=== PATIENT | female | born 1960 | race Caucasian/White ===

== ENCOUNTER → 2016-07-27 | Outpatient (CLI) | payer BC ==
--- NOTE | 2016-07-28 11:34 | SLS ---
Brenna is 54 with severe obstructive sleep apnea with an AHI 128. She is coming in for a routine check. She is on a CPAP pressure at the pressure of 15 cm of water. I noticed patient's mother used to be my patient, Jasmine Sommers, and she passed from complications of viral encephalitis approximately 4 weeks ago. Since then, the patient has lost some weight and she has lost approximately 15 pounds and she attributes this to diminished oral intake. She has also obtained Dreamwear nasal pillow and this has replaced her old nose mask. She is very compliant with CPAP use. Her leak ( ) is only at 1 L per minute and her AHI while on treatment is down to 0.5. She has no complaints otherwise. For now, she is still undergoing successful CPAP therapy for severe symptomatic obstructive sleep apnea. Temperature 98.2, pulse 88, respirations 16. BMI is 58.1. Weight is 328. Height is 5 feet 3 inches. Saturation 96%. GENERAL APPEARANCE: Calm, comfortable. HEENT: Short neck, crowding of posterior pharynx. There is no goiter or neck masses. LUNGS: Diminished breath sounds; otherwise clear. HEART: Sounds are regular rate and rhythm. Normal S1, S2. ABDOMEN: Soft, nontender. No organomegaly. EXTREMITIES: No edema. No cyanosis or clubbing. IMPRESSION: 1. Severe obstructive sleep apnea with an AHI 128. Continues to have successful CPAP therapy at pressure of 15 cm of water. 2. Obesity with significant weight loss and the patient's BMI is down to 58. 3. Hypersomnia recovered while on CPAP therapy and the patient's treatment continues to be successful. 4. Posttraumatic stress disorder. 5. Diabetes mellitus. 6. Stress urinary incontinence. 7. Grieving the loss of her mother. PLAN: 1. Continue Dreamwear nose pillow. 2. Continue CPA at the same level of pressure. 3. Encourage further weight loss. 4. Monitor blood pressure as the patient's blood pressure was noted to be elevated on today's evaluation and this will be further discussed with the primary care physician. 5. Will continue to follow.
== END | disposition home or self-care (01) ==
LOC: SLEEP 16:47
PROVIDERS: ATTEND Internal Medicine Critical Care Medicine
DX: G47.33 Obstructive sleep apnea (adult) (pediatric) (principal); E66.9 Obesity, unspecified; Z68.43 Body mass index [BMI] 50.0-59.9, adult; G47.10 Hypersomnia, unspecified; F43.10 Post-traumatic stress disorder, unspecified; E11.9 Type 2 diabetes mellitus without complications; N39.3 Stress incontinence (female) (male); F43.21 Adjustment disorder with depressed mood; Z99.89 Dependence on other enabling machines and devices

== ENCOUNTER → 2017-10-10 | Outpatient (CLI) | payer BC ==
--- NOTE | 2017-10-10 17:08 | XR ---
EXAMINATION TYPE: XR Hip RT and AP Pelvis DATE OF EXAM: 10/10/2017 COMPARISON: 07/13/2011 HISTORY: Hip pain TECHNIQUE: 3 views FINDINGS: There is moderately severe narrowing of the right hip joint space with subchondral cystic change on b oth sides of the hip joint. The proximal femur is intact without evidence of an acute fracture. Sacro iliac joints are intact. Pelvic ring is intact. CONCLUSION: There is severe osteoarthritis in the right hip joint that is new compared to old exam. No acute frac ture seen.
== END | disposition home or self-care (01) ==
LOC: RADXRMAIN 16:48
PROVIDERS: ATTEND Nurse Practitioner Adult Health
DX: M16.11 Unilateral primary osteoarthritis, right hip (principal)
CPT/HCPCS: 73502

== ENCOUNTER → 2018-01-20 | Outpatient (CLI) | payer BC ==
[2018-01-20 13:34] LABS: Appearance,Urine Clear (Clear); Bilirubin,Urine Negative (Negative); Blood,Urine Negative (Negative); Color,Urine Yellow; Glucose,Urine (UA) Negative (Negative); Ketones,Urine Negative (Negative); Leukocyte Esterase,Urine Negative (Negative); Nitrite,Urine Negative (Negative); PH, Urine 7.5 (5.0-8.0); Protein,Urine Negative (Negative); Specific Gravity,Urine 1.015 (1.001-1.035); Urobilinogen,Urine <2.0 mg/dL (<2.0)
[2018-01-20 13:34] LABS: INR 1.1 (<1.2); Partial Thromboplastin Time 24.5 sec (22.0-30.0); Prothrombin Time 10.6 sec (9.0-12.0)
[2018-01-20 13:50] LABS: ALT 38 U/L (9-52); AST 21 U/L (14-36); Albumin 4.1 g/dL (3.5-5.0); Alkaline Phosphatase 61 U/L (38-126); Anion Gap 5 mmol/L; Blood Urea Nitrogen 14 mg/dL (7-17); Carbon Dioxide 29 mmol/L (22-30); Chloride 105 mmol/L (98-107); Glucose 123 mg/dL (74-99); Potassium 5.3 mmol/L (3.5-5.1); Sodium 139 mmol/L (137-145); Total Bilirubin 0.5 mg/dL (0.2-1.3); Total Protein 6.8 g/dL (6.3-8.2)
== END | disposition home or self-care (01) ==
LOC: LABPAT 12:56
PROVIDERS: ATTEND Orthopaedic Surgery
DX: Z01.812 Encounter for preprocedural laboratory examination (principal)
CPT/HCPCS: 36415; 80053; 81003; 85610; 85730; 87070

== ENCOUNTER → 2018-01-20 | Outpatient (CLI) | payer BC ==
[2018-01-20 13:23] LABS: Basophils % (A) 0 %; Eosinophils # (A) 0.2 k/uL (0-0.7); Eosinophils % (A) 3 %; HGB 14.1 gm/dL (11.4-16.0); Lymphocytes # (A) 1.9 k/uL (1.0-4.8); Lymphocytes % (A) 32 %; MCH 29.5 pg (25.0-35.0); MCHC 32.7 g/dL (31.0-37.0); MCV 90.2 fL (80.0-100.0); Mean Platelet Volume 7.9; Monocytes # (A) 0.5 k/uL (0-1.0); Monocytes % (A) 8 %; Neutrophils # (A) 3.2 k/uL (1.3-7.7); Neutrophils % (A) 54 %; Platelet Count 220 k/uL (150-450); RBC 4.77 m/uL (3.80-5.40); RDW 13.7 % (11.5-15.5)
[2018-01-20 21:40] LABS: Hemoglobin A1C 5.6 % (4.0-6.0)
== END | disposition home or self-care (01) ==
LOC: LABWHC1 12:52
PROVIDERS: ATTEND Orthopaedic Surgery
DX: Z01.812 Encounter for preprocedural laboratory examination (principal); E11.9 Type 2 diabetes mellitus without complications
CPT/HCPCS: 36415; 83036; 85025

== ENCOUNTER 2018-01-30 10:44 | Inpatient (IN) | payer BC ==
[2018-01-20 15:34] VITALS: BMI 51.5
[~2018-01-30 10:44] MED LIST: ACETAMINOPHEN TAB 500 MG TAB PO ONE; DEXAMETHASONE SOD PHOSPHATE 10 MG/ML 1 ML VIAL IV ONE; HYDROmorphone 1 MG/ML 1 ML SYRINGE IVP PRN; LIDOCAINE 1% 20 ML VIAL (10MG/ML) FOR IV START INTRADERMA PRN; MELOXICAM 7.5 MG TAB PO ONE; MIDAZOLAM 2 MG/2 ML VIAL IV PRN; ONDANSETRON 4 MG/2 ML VIAL IVP ONE; SCOPOLAMINE 1.5MG/72HR PATCH TRANSDERM ONE; TRANEXAMIC ACID 1,000 MG in SODIUM CHLORIDE 0.9% 100 ML IVPB ONE
[2018-01-30] MEDS ORDERED: ROPIVACAINE 246.25 MG, EPINEPHrine 0.5 MG, KETOROLAC 30 MG, cloNIDine HCL/PF 80 MCG, WA... MISCELLANE ONE ×5 (11:35)
[2018-01-30 11:43] LABS: Glucose,Whole Blood 125 mg/dL (75-99)
[2018-01-30] MEDS: LACTATED RINGERS 1,000 ML IV SCH (11:43)
[2018-01-30] MEDS ORDERED: MAGNESIUM HYDROXIDE 2,400 MG/10 ML CUP PO PRN (11:50)
[2018-01-30] MEDS ORDERED: HYDROmorphone 1 MG/ML 1 ML SYRINGE IVP PRN ×3 (11:50)
[2018-01-30] MEDS ORDERED: HYDROcodone/APAP 5-325MG 1 EACH TAB PO PRN (11:50)
[2018-01-30] MEDS ORDERED: NALOXONE 0.4 MG/ML 1 ML VIAL IV PRN (11:50)
[2018-01-30] MEDS ORDERED: DIAZEPAM 5 MG TAB PO PRN ×2 (11:50)
[2018-01-30] MEDS ORDERED: ONDANSETRON 4 MG/2 ML VIAL IVP PRN (11:50)
[2018-01-30] MEDS ORDERED: SODIUM CHLORIDE 0.9% IRRIG 1,000 ML BTL IRRIGATION ONE (12:16)
[2018-01-30] MEDS ORDERED: TRANEXAMIC ACID 1,000 MG/10 ML VIAL ONE (12:16)
[2018-01-30] MEDS ORDERED: fentaNYL (PF) 50 MCG/ML 2 ML AMP ONE (12:16)
[2018-01-30] MEDS ORDERED: SODIUM CHLORIDE 0.9% 100 ML BAG ONE (12:16)
[2018-01-30] MEDS ORDERED: PROPOFOL 10 MG/ML 20 ML VIAL IV ONE (12:16)
[2018-01-30] MEDS ORDERED: MIDAZOLAM 2 MG/2 ML VIAL ONE (12:16)
[2018-01-30] MEDS ORDERED: ePHEDrine SULFATE/0.9% NACL/PF 50 MG/5 ML SYRINGE IV ONE (12:16)
[2018-01-30] MEDS ORDERED: HEPARIN SODIUM,PORCINE 10,000 UNIT/ML 1 ML VIAL ONE (12:16)
[2018-01-30] MEDS ORDERED: ceFAZolin 3,000 MG in SODIUM CHLORIDE 0.9% IRRIGATIO 3,000 ML IRRIGATION ONE (12:42)
--- NOTE | 2018-01-30 13:38 | P.OP ---
Date of Procedure: 01/30/18 Preoperative Diagnosis: Severe osteoarthritis right hip Postoperative Diagnosis: Severe osteoarthritis right hip Procedure(s) Performed: Right total hip arthroplasty with a direct anterior approach Implants: Pierce and nephew Polarstem size 2 standard Pierce & Nephew R3, 3 hole acetabular shell, 48 mm Pierce & Nephew reflection 6.5 mm cancellus screw, 20 mm 2 Pierce & Nephew R3, XLPE 20 acetabular liner Pierce & Nephew Oxinium femoral head 32 m, +0 All components were press-fit. The articulation is Oxinium on polyethylene. Anesthesia: spinal Surgeon: Keshawn Burdick Medical Record Librarians Teacher #1: Marsha Cleary Pathology: other (Femoral head) Condition: stable Disposition: PACU Indications for Procedure: After failure of conservative treatment we discussed the surgical and nonsurgical treatment options at length. Patient wishes to proceed with a total hip arthroplasty with a direct anterior approach. Complications specific to this procedure were discussed at length, including but not limited to infection, leg length discrepancy, dislocation, and nerve injury. Patient is aware of all these complications and informed consent was obtained Operative Findings: The operative findings are consistent with severe osteoarthritis of the right hip Description of Procedure: Patient was seen and evaluated in the preoperative area, consent was reviewed, and the surgical site was marked with a skin marker. Patient was then brought to the operating room and given prophylactic antibiotics intravenously. 1 g of Tranexamic acid was also given. A spinal anesthetic was administered by the anesthesia department. The patient was then placed on the [place] table with the bony prominences well-padded. The hip area was then prepped and draped in usual sterile fashion. A universal timeout was then performed, which confirmed the patient's name, surgical site, ALLERGIES, and procedure being performed. Next the incision site was located at 1 cm distal and 1 cm lateral to the anterior superior iliac spine. The skin and subcutaneous tissues were sharply incised. Incision was carefully dissected down to the fascia overlying the tensor fascia gilbert muscle. This fascia was then incised in line with the incision. Next, using blunt finger dissection, the tensor fascia gilbert muscle was dissected off its investing fascia. The muscle was then carefully retracted laterally with a cobra retractor over the lateral neck of the femur. Next, the circumflex vessels were identified and cauterized using the AquaMantis device. The anterior hip capsule was then exposed. The capsule was then opened and an inverted T fashion. Cobra retractors were then placed intracapsularly. The proximal femur was then visualized. The femoral neck was then osteotomized appropriate level above the lesser trochanter. Small amount of traction was placed with the [place] table. A small wedge of bone was then removed from the remaining femoral head. Next, using a corkscrew femoral head was easily removed from the acetabulum. On gross visual inspection, the femoral head had complete loss of articular cartilage in multiple periarticular osteophytes. Attention was then turned to the acetabulum. the acetabulum was exposed and any remaining labrum was excised. Sequential reaming of the acetabulum was performed using fluoroscopic guidance. When the appropriate size was reached, a trial was then placed. The position and fit of the trial was checked with fluoroscopy. The trial was then removed. Then, using fluoroscopic guidance, the final implant was impacted at 20 of anteversion and 40 of abduction, and fully seated in the acetabulum. 2 screws were then placed in the acetabulum. Again fluoroscopy was used to check position of the screws. Next, the liner was then impacted, with a 20 elevated liner located in the anterior superior quadrant. Component locking was confirmed. Attention was then directed to the femur. With the aid of the [place] table, the femur was externally rotated to approximately 130, extended, and abducted under the opposite leg. A side hook was then placed under the proximal femur, and the side hook elevator was used to elevate the proximal femur. Retractors were then placed. A capsular release was performed, as well as a release of the conjoined tendon, which afforded excellent visualization of the proximal femur. Next, a box osteotome was used to lateralize the proximal femur. A produce field merchandiser was then used to locate the femoral canal. Sequential broaching was then performed with appropriate size which afforded excellent fixation in the proximal femur. A trial was then placed with appropriate head and neck, and the hip was gently reduced with the aid of the [place] table. Fluoroscopy was then used to check position of the components, as well as to ensure equal leg lengths. The hip was then gently dislocated and the trials were then removed. Final implants were then impacted and the hip was again reduced. Final fluoroscopic x-rays confirmed that the components were in anatomic position, as well as equal leg lengths. The hip was also taken through range of motion, and found to be stable. The hip was then copiously irrigated with antibiotic solution with pulsatile lavage. The hip was then irrigated with Irrisept solution. The soft tissues were then injected with a ropivacaine solution, which consisted of 246.25 mg of ropivacaine, 0.5 mg of epinephrine, 30 mg of Toradol, 80 g of clonidine, and 48.45 mL of sterile water, for a total of 100 mL of fluid injected. A second dose of 1 g of Tranexamic acid was also given. the fascia was then closed with 2-0 strata fix suture. The subcutaneous tissue was closed with 3-0 Vicryl. The subcuticular tissue was closed with 3-0 strata fix suture. The skin was then closed with Dermabond glue and a sterile silver dressing. The patient was then transferred to the recovery room in stable condition. The podiatry assistant ANGEL Gerard was required due to the complexity of surgery, and the need for skilled director surgical for positioning, draping, exposure, retraction, and closure of the wound.
[2018-01-30] MEDS ORDERED: LACTATED RINGERS 1,000 ML IV ONE (13:42)
--- NOTE | 2018-01-30 13:42 | FL ---
EXAMINATION TYPE: FL guidance operating room DATE OF EXAM: 01/30/2018 HISTORY: Flouroscopy time 27 seconds of fluoroscopy provided. IMPRESSION: 1. Fluoroscopy time.
--- NOTE | 2018-01-30 14:57 | XR ---
EXAMINATION TYPE: XR Hip Limited RT DATE OF EXAM: 01/30/2018 CLINICAL HISTORY: Left hip pain and osteoarthritis. TECHNIQUE: Single AP portable view of right hip is obtained immediately postoperatively. COMPARISON: None. FINDINGS: Metallic hardware from right hip arthroplasty is seen and appears satisfactory in alignment and position. There is evidence of recent surgery with soft tissue swelling noted laterally. IMPRESSION: Metallic hardware from right hip arthroplasty is satisfactory in position.
[2018-01-30] MEDS: SODIUM CHLORIDE 0.9% 1,000 ML IV SCH (15:46)
[2018-01-30] MEDS: HYDROcodone/APAP 5-325MG 1 EACH TAB PO PRN ×2 (16:13→22:25)
[2018-01-30 16:42] LABS: Glucose,Whole Blood 155 mg/dL (75-99)
[2018-01-30] MEDS: INSULIN ASPART 100 UNIT/ML 1 ML 10 ML VIAL SQ SCH ×2 (17:43→22:29)
[2018-01-30 20:00] LABS: Glucose,Whole Blood 203 mg/dL (75-99)
--- NOTE | 2018-01-30 21:31 | CONS ---
CONSULTATION DATE OF CONSULTATION: 01/30/18 REASON FOR CONSULTATION: Medical management requested by Dr. Burdick. CONSULTATION: This is a pleasant 57-year-old patient of Dr. Murray. Chronic stable medical conditions include diabetes, hypertension, hyperlipidemia, obstructive sleep apnea uses CPAP machine. The patient has undergone a right total hip arthroplasty. Some pain is present. No nausea, vomiting. No cardiac history. Sister was still present. The patient did have some supper. Sitting up. REVIEW OF SYSTEMS: CONSTITUTIONAL: None. HEENT: None. RESPIRATORY: None. CARDIOVASCULAR: None. GASTROINTESTINAL: Denies. MUSCULOSKELETAL: Arthritic pain in different joints. DERMATOLOGICAL, HEMATOLOGICAL, LYMPHATICS: None. PSYCHIATRY: None. NEUROLOGICAL: None. PAST MEDICAL HISTORY: Diabetes, hyperlipidemia, hypertension, osteoarthritis, skin disorder, sleep apnea, urinary urgency. PAST SURGICAL HISTORY: Breast surgery, tonsillectomy, right breast lumpectomy. SOCIAL HISTORY: Does not smoke. Alcohol rarely. Lives by herself. 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 FAMILY HISTORY: Skin cancer. HOME MEDICATIONS: 1. Glucophage 100 mg p.o. b.i.d. 2. Ambien 10 mg q.h.s. 3. Detrol LA 4 mg Tuesday, Wednesdays and Fridays. 4. Multivitamin 1 tablet p.o. daily. 5. Claritin 10 mg p.o. q.h.s. 6. Zestril 5 mg q.h.s. 7. Advil 600 mg q.12 hours and 400 mg q.h.s. 8. Flonase 2 sprays each nostril daily. 9. Lipitor 20 mg q.h.s. 10.Tylenol 22 tablets p.o. q.12h p.r.n. ALLERGIES: NEOMYCIN AND NICKEL. PHYSICAL EXAMINATION: Temperature 96.8, pulse 77, respirations 18, blood pressure 146/77, pulse ox 98%. GENERAL APPEARANCE: Well built, BMI 51.5. Sitting up, comfortable. EYES: Pupils equal. Conjunctivae normal. HEENT: External appearance of nose and ears normal. Oral cavity normal. NECK: JVD not raised. Mass not palpable. RESPIRATORY: Effort, lungs fair entry. CARDIOVASCULAR: 1st and 2nd sounds normal. No edema. ABDOMEN: Soft, nontender. Liver and spleen not palpable. LYMPHATIC: No lymph node palpable in neck or axillae. PSYCHIATRY: Alert and oriented x3. Mood and affect normal. MUSCULOSKELETAL: The patient has got a ice pack on the right hip and evidence of osteoarthritis especially in the hands. INVESTIGATIONS: Accu-Cheks are noted 125, 155, potassium 4.4. ASSESSMENT: 1. Right total knee arthroplasty. 2. Primary osteoarthritis. 3. Obstructive sleep apnea uses CPAP machine. 4. Hyperlipidemia. 5. Essential hypertension. 6. Diabetes mellitus type 2 on oral hypoglycemic. 7. Morbid obesity, BMI 51.5. PLAN: Home medications are resumed. The patient has been put on aspirin for DVT prophylaxis per Dr. Burdick. Venodyne boots are in place. Pain is controlled. Accu-Cheks will be followed. Will have a dietitian see the patient for weight loss measures. Care was discussed with the patient. Questions were answered. Thank you Dr. Burdick. MMCARMINE / SANA: [id number] /
[2018-01-30] MEDS: ATORVASTATIN 20 MG TAB PO SCH (22:26)
[2018-01-30] MEDS: LISINOPRIL 5 MG TAB PO SCH (22:26)
[2018-01-30] MEDS: LORATADINE 10 MG TAB PO SCH (22:26)
[2018-01-30] MEDS: metFORMIN 500 MG TAB PO SCH (22:27)
[2018-01-30] MEDS: ZOLPIDEM 10 MG TAB PO SCH (22:27)
[2018-01-30] MEDS: hydrOXYzine PAMOATE 25 MG CAP PO PRN (22:27)
[2018-01-30] MEDS: SENNOSIDES-DOCUSATE SODIUM 1 EACH TAB PO SCH (22:27)
[2018-01-30] MEDS: OXYBUTYNIN XL 5 MG TAB.ER.24 PO SCH (22:28)
[2018-01-30] MEDS: ASPIRIN 325 MG TAB PO SCH (22:28)
[2018-01-31] MEDS: SODIUM CHLORIDE 0.9% 1,000 ML IV SCH ×2 (03:24→16:47)
[2018-01-31] MEDS: HYDROcodone/APAP 5-325MG 1 EACH TAB PO PRN ×3 (04:03→20:23)
[2018-01-31] MEDS: hydrOXYzine PAMOATE 25 MG CAP PO PRN (04:04)
[2018-01-31] MEDS: LACTATED RINGERS 1,000 ML IV SCH (05:52)
[2018-01-31 06:58] LABS: Glucose,Whole Blood 122 mg/dL (75-99)
[2018-01-31] MEDS: INSULIN ASPART 100 UNIT/ML 1 ML 10 ML VIAL SQ SCH ×4 (07:26→20:30)
[2018-01-31 07:37] LABS: Basophils % (A) 0 %; Eosinophils % (A) 0 %; HCT 36.9 % (34.0-46.0); HGB 11.6 gm/dL (11.4-16.0); Lymphocytes # (A) 1.9 k/uL (1.0-4.8); Lymphocytes % (A) 18 %; MCH 28.9 pg (25.0-35.0); MCHC 31.6 g/dL (31.0-37.0); MCV 91.5 fL (80.0-100.0); Mean Platelet Volume 8.7; Monocytes # (A) 0.8 k/uL (0-1.0); Monocytes % (A) 8 %; Neutrophils # (A) 7.2 k/uL (1.3-7.7); Neutrophils % (A) 71 %; Platelet Count 232 k/uL (150-450); RBC 4.03 m/uL (3.80-5.40); RDW 13.4 % (11.5-15.5); WBC 10.1 k/uL (3.8-10.6)
[2018-01-31] MEDS: ASPIRIN 325 MG TAB PO SCH ×2 (08:22→20:23)
[2018-01-31] MEDS: MELOXICAM 7.5 MG TAB PO SCH (08:22)
[2018-01-31] MEDS: metFORMIN 500 MG TAB PO SCH ×2 (08:23→20:23)
[2018-01-31] MEDS: MULTIVITAMINS, THERA 1 EACH TAB PO SCH (08:23)
--- NOTE | 2018-01-31 09:03 | P.PN ---
Subjective Progress Note Date: 01/31/18 This is a 57-year-old female who is status post right total hip arthroplasty. This is postoperative day #1. Patient is seen and evaluated at bedside with Dr. Keshawn Burdick. Patient states that her pain is well controlled today. Patient denies any fever/chills, numbness, weakness, tingling, abdominal pain, shortness of breath or chest pain. Objective - Vital Signs Vital signs: Vital Signs Temp 97.7 F 01/31/18 07:28 Pulse 63 01/31/18 07:28 Resp 16 01/31/18 07:28 BP 95/63 01/31/18 07:28 Pulse Ox 97 01/31/18 07:28 Intake & Output 01/30/18 01/31/18 01/31/18 18:59 06:59 18:59 Intake Total 1351 1040 200 Output Total 200 Balance 1151 1040 200 Weight 136.078 kg Intake: IV 1351 Intake, IV Titration 1040 Amount Sodium Chloride 0.9% 1, 1040 000 ml @ 65 mls/hr IV . [id number] Rx#:[id number] Oral 200 Output: Estimated Blood Loss 200 Other: Voiding Method Toilet # Voids 1 2 - Exam Vital signs are stable. Patient is in no acute distress and is alert and oriented 3. Calf is soft and nontender to palpation. Dressing is clean, dry, and intact. Patient has full foot and ankle motion without pain or difficulty. Neurovascular status and circulatory status are intact. - Labs CBC & Chem 7: 01/31/18 07:06 01/30/18 11:30 Labs: Abnormal Lab Results - Last 24 Hours (Table) 01/30/18 01/30/18 01/30/18 Range/Units 11:25 16:39 19:53 POC Glucose (mg/dL) 125 H 155 H 203 H (75-99) mg/dL 01/31/18 Range/Units 06:52 POC Glucose (mg/dL) 122 H (75-99) mg/dL Assessment and Plan (1) Primary osteoarthritis of right hip Current Visit: Yes Status: Acute Code(s): M16.11 - UNILATERAL PRIMARY OSTEOARTHRITIS, RIGHT HIP SNOMED Code(s): 689743790 (2) S/P total hip arthroplasty Current Visit: Yes Status: Acute Code(s): Z96.649 - PRESENCE OF UNSPECIFIED ARTIFICIAL HIP JOINT SNOMED Code(s): 174103657163 Plan: Continue routine postop care. Continue antocoagulation. Weightbearing as tolerated with a walker Leave dressing in place for 10 days. Likely discharge to rehab .
[2018-01-31 11:31] LABS: Glucose,Whole Blood 103 mg/dL (75-99)
[2018-01-31 17:17] LABS: Glucose,Whole Blood 130 mg/dL (75-99)
[2018-01-31 17:38] LABS: Hemoglobin A1C 5.6 % (4.0-6.0)
[2018-01-31 20:07] LABS: Glucose,Whole Blood 113 mg/dL (75-99)
[2018-01-31] MEDS: SENNOSIDES-DOCUSATE SODIUM 1 EACH TAB PO SCH (20:23)
[2018-01-31] MEDS: LORATADINE 10 MG TAB PO SCH (21:59)
[2018-01-31] MEDS: LISINOPRIL 5 MG TAB PO SCH (21:59)
[2018-01-31] MEDS: ATORVASTATIN 20 MG TAB PO SCH (21:59)
[2018-01-31] MEDS: ZOLPIDEM 10 MG TAB PO SCH (21:59)
--- NOTE | 2018-01-31 23:38 | PN ---
PROGRESS NOTE DATE OF SERVICE: 01/31/2018 PRESENTING COMPLAINT: Right hip pain. INTERVAL HISTORY: Patient is status post right hip surgery. Some pain is present. Did tolerate her diet. No nausea, vomiting. No chest pain. Did get up with Physical Therapy. REVIEW OF SYSTEMS: Done for constitutional, cardiovascular, GI, pulmonary, musculoskeletal; relevant findings as above. CURRENT MEDICATIONS: Reviewed. EXAMINATION: Temperature 97.7, pulse 63, respirations 16, blood pressure 95/63, pulse 97% on room air. GENERAL APPEARANCE: Lying in bed, awake. EYES: Pupils equal. Conjunctivae normal. HEENT: External appearance of nose and ears normal. Oral cavity normal. NECK: JVD not raised. Mass not palpable. RESPIRATORY: Effort normal. Lungs are clear. CARDIOVASCULAR: First and second sounds normal. No edema. ABDOMEN: Soft, nontender. Liver and spleen not palpable. PSYCHIATRY: Alert and oriented x3. Mood and affect normal. INVESTIGATIONS: White count 10.4, hemoglobin 11.6. Accu-Cheks are noted. ASSESSMENT: 1. Right total hip arthroplasty. 2. Primary osteoarthritis. 3. Obstructive sleep apnea; does use CPAP machine. 4. Hyperlipidemia. 5. Essential hypertension. 6. Diabetes mellitus type 2 on oral hypoglycemics. 7. Morbid obesity, BMI of 51.5. PLAN: Continue current medication and treatment plan. Care was discussed with the patient. MMODL / JALYNN: [id number] /
[2018-02-01] MEDS: HYDROcodone/APAP 5-325MG 1 EACH TAB PO PRN ×3 (05:08→22:25)
[2018-02-01] MEDS: LACTATED RINGERS 1,000 ML IV SCH (05:56)
[2018-02-01 06:55] LABS: Glucose,Whole Blood 124 mg/dL (75-99)
--- NOTE | 2018-02-01 08:10 | P.PN ---
Subjective Progress Note Date: 02/01/18 This is a 57-year-old female who is status post right total hip arthroplasty. This is postoperative day #2. Patient is seen and evaluated at bedside with Dr. Keshawn Burdick. Patient states that her pain is well controlled today. Patient denies any fever/chills, numbness, weakness, tingling, abdominal pain, shortness of breath or chest pain. Objective - Vital Signs Vital signs: Vital Signs Temp 98.6 F 02/01/18 07:50 Pulse 77 02/01/18 07:50 Resp 16 02/01/18 07:50 BP 109/60 02/01/18 07:50 Pulse Ox 96 02/01/18 07:50 Intake & Output 01/31/18 02/01/18 02/01/18 18:59 06:59 18:59 Intake Total 400 540 Balance 400 540 Weight 136.078 kg Intake: Oral 400 540 Other: Voiding Method Toilet Toilet # Voids 2 1 - Exam Vital signs are stable. Patient is in no acute distress and is alert and oriented 3. Calf is soft and nontender to palpation. Dressing is clean, dry, and intact. Patient has full foot and ankle motion without pain or difficulty. Neurovascular status and circulatory status are intact. - Labs CBC & Chem 7: 01/31/18 07:06 01/30/18 11:30 Labs: Abnormal Lab Results - Last 24 Hours (Table) 01/31/18 01/31/18 01/31/18 Range/Units 11:25 17:16 20:03 POC Glucose (mg/dL) 103 H 130 H 113 H (75-99) mg/dL 02/01/18 Range/Units 06:52 POC Glucose (mg/dL) 124 H (75-99) mg/dL Assessment and Plan (1) Primary osteoarthritis of right hip Current Visit: Yes Status: Acute Code(s): M16.11 - UNILATERAL PRIMARY OSTEOARTHRITIS, RIGHT HIP SNOMED Code(s): 250450708 (2) S/P total hip arthroplasty Current Visit: Yes Status: Acute Code(s): Z96.649 - PRESENCE OF UNSPECIFIED ARTIFICIAL HIP JOINT SNOMED Code(s): 441432443531 Plan: Continue routine postop care. Continue antocoagulation. Weightbearing as tolerated with a walker Leave dressing in place for 10 days. Likely discharge to home or to rehab tomorrow.
[2018-02-01] MEDS: INSULIN ASPART 100 UNIT/ML 1 ML 10 ML VIAL SQ SCH ×4 (09:04→22:26)
[2018-02-01] MEDS: metFORMIN 500 MG TAB PO SCH ×2 (09:10→22:25)
[2018-02-01] MEDS: ASPIRIN 325 MG TAB PO SCH ×2 (09:10→22:25)
[2018-02-01] MEDS: MELOXICAM 7.5 MG TAB PO SCH (09:10)
[2018-02-01] MEDS: SODIUM CHLORIDE 0.9% 1,000 ML IV SCH (10:11)
[2018-02-01 11:48] LABS: Glucose,Whole Blood 107 mg/dL (75-99)
[2018-02-01] MEDS: MULTIVITAMINS, THERA 1 EACH TAB PO SCH (12:36)
[2018-02-01 17:20] LABS: Glucose,Whole Blood 100 mg/dL (75-99)
[2018-02-01] MEDS: OXYBUTYNIN XL 5 MG TAB.ER.24 PO SCH (17:47)
--- NOTE | 2018-02-01 18:15 | PN ---
PROGRESS NOTE DATE OF SERVICE: 02/01/2018 PRESENT COMPLAINT: Right hip pain. INTERVAL HISTORY: Patient is status post right hip surgery. Pain is somewhat better controlled, walking better in the hallway, did tolerate her diet. No nausea, vomiting. Sister at the bedside. REVIEW OF SYSTEMS: Done for constitutional, cardiovascular, GI, pulmonary, musculoskeletal; relevant findings as above. CURRENT MEDICATIONS: Reviewed. EXAMINATION: Temperature 98.6, pulse 77, respirations 16, blood pressure 109/60, pulse ox 96% on room air. GENERAL APPEARANCE: Sitting up on a chair, awake. EYES: Pupils equal. Conjunctivae normal. HEENT: External nose and ears normal . Oral cavity normal. NECK: JVD not raised. Mass not palpable. RESPIRATORY: Effort normal. Lungs are clear. CARDIOVASCULAR: First and second sounds normal. No edema. ABDOMEN: Soft nontender. Liver is palpable. PSYCHIATRY: Alert and oriented x3. Mood and affect were normal. INVESTIGATIONS: Accu-Cheks are noted. ASSESSMENT: 1. Right total hip arthroplasty. 2. Primary osteoarthritis. 3. Obstructive sleep apnea, does not use CPAP machine. 4. Hyperlipidemia. 5. Essential hypertension. 6. Diabetes mellitus type 2 on oral hypoglycemic. 7. Morbid obesity, BMI 51.5. PLAN: Overall, patient doing much better. Pain is better controlled. Activity is improving, better. Follow. MMODL / IJN: [id number] /
[2018-02-01 20:22] LABS: Glucose,Whole Blood 146 mg/dL (75-99)
[2018-02-01] MEDS: LORATADINE 10 MG TAB PO SCH (22:25)
[2018-02-01] MEDS: SENNOSIDES-DOCUSATE SODIUM 1 EACH TAB PO SCH (22:25)
[2018-02-01] MEDS: ATORVASTATIN 20 MG TAB PO SCH (22:25)
[2018-02-01] MEDS: ZOLPIDEM 10 MG TAB PO SCH (22:25)
[2018-02-01] MEDS: LISINOPRIL 5 MG TAB PO SCH (22:25)
[2018-02-02 01:21] VITALS: TEMP 98.5
[2018-02-02] MEDS: SODIUM CHLORIDE 0.9% 1,000 ML IV SCH (02:59)
[2018-02-02] MEDS: LACTATED RINGERS 1,000 ML IV SCH (05:23)
[2018-02-02 06:55] LABS: Glucose,Whole Blood 100 mg/dL (75-99)
[2018-02-02 08:02] LABS: Basophils % (A) 0 %; Eosinophils # (A) 0.2 k/uL (0-0.7); Eosinophils % (A) 3 %; HCT 34.9 % (34.0-46.0); HGB 11.1 gm/dL (11.4-16.0); Lymphocytes # (A) 2.1 k/uL (1.0-4.8); Lymphocytes % (A) 34 %; MCH 29.1 pg (25.0-35.0); Mean Platelet Volume 8.2; Monocytes # (A) 0.5 k/uL (0-1.0); Monocytes % (A) 8 %; Neutrophils # (A) 3.2 k/uL (1.3-7.7); Neutrophils % (A) 52 %; Platelet Count 194 k/uL (150-450); RBC 3.83 m/uL (3.80-5.40); RDW 13.5 % (11.5-15.5); WBC 6.1 k/uL (3.8-10.6)
--- NOTE | 2018-02-02 08:25 | P.DS ---
Providers Date of admission: 01/30/18 10:44 Expected date of discharge: 02/02/18 Attending physician: Keshawn Burdick Consults: 01/30/18 11:50 Consult Physician Routine Consulting Provider: Kyle Murray Consult Reason/Comments: medical management Do you want consulting provider notified?: Yes 01/30/18 14:53 Consult Physician Routine Consulting Provider: Harry Mayo Consult Reason/Comments: medical management Do you want consulting provider notified?: Yes Primary care physician: Kyle Murray - Discharge Diagnosis(es) (1) Primary osteoarthritis of right hip Current Visit: Yes Status: Acute (2) S/P total hip arthroplasty Current Visit: Yes Status: Acute Hospital Course: This is a 57-year-old female with known history of degenerative arthritis of the right hip. The patient presents for evaluation. After discussion and consideration patient elects to proceed with total hip arthroplasty. The patient is seen preoperatively by Dr. Burdick and medically cleared for surgery by their primary care physician. Patient is admitted to [facility] on 01/30/2018 for total hip arthroplasty. The procedures performed without complication or sequelae. The patient is doing well postoperatively. Labs and vital signs are stable on day of discharge. On day of discharge patient's hip incision is healing well. There is minimal erythema. There is no drainage noted at this time. There is minimal soft tissue swelling to the hip and thigh. Patient has full foot and ankle motion without difficulty or pain. Neurovascular status to the right lower extremity is intact. Patient is discharged home in good condition. Please see med rec for accurate list of home medications. Plan - Discharge Summary Discharge Rx Participant: Yes New Discharge Prescriptions: New Aspirin 325 mg PO BID #60 tab HYDROcodone/APAP 5-325MG [[place] 5-325] 1 - 2 tab PO Q4-6H PRN #84 tab PRN Reason: Pain Sennosides [Senokot] 1 tab PO BID #60 tablet No Action Loratadine [Claritin] 10 mg PO HS Ibuprofen [Advil] 400 mg PO HS Zolpidem [Ambien] 10 mg PO HS Acetaminophen Tab [Tylenol Tab] 2 tab PO Q12HR PRN PRN Reason: Analgesia metFORMIN HCL [Glucophage] 500 mg PO BID Tolterodine ER [Detrol LA] 4 mg PO MOWEFR Lisinopril [Zestril] 5 mg PO HS Fluticasone Nasal [place] [Flonase Nasal [place]] 2 spr EA NOSTRIL DAILY Atorvastatin [Lipitor] 20 mg PO HS Multivitamins, Thera [Multivitamin (formulary)] 1 tab PO DAILY Ibuprofen [Advil] 600 mg PO Q12HR Discharge Medication List Ibuprofen [Advil] 400 mg PO HS 09/23/14 [History] Loratadine [Claritin] 10 mg PO HS 09/23/14 [History] Zolpidem [Ambien] 10 mg PO HS 09/23/14 [History] Acetaminophen Tab [Tylenol Tab] 2 tab PO Q12HR PRN 09/25/14 [History] Atorvastatin [Lipitor] 20 mg PO HS 01/30/18 [History] Fluticasone Nasal [place] [Flonase Nasal [place]] 2 spr EA NOSTRIL DAILY 01/30/18 [ History] Ibuprofen [Advil] 600 mg PO Q12HR 01/30/18 [History] Lisinopril [Zestril] 5 mg PO HS 01/30/18 [History] Multivitamins, Thera [Multivitamin (formulary)] 1 tab PO DAILY 01/30/18 [History ] Tolterodine ER [Detrol LA] 4 mg PO MOWEFR 01/30/18 [History] metFORMIN HCL [Glucophage] 500 mg PO BID 01/30/18 [History] Aspirin 325 mg PO BID #60 tab 02/02/18 [Rx] HYDROcodone/APAP 5-325MG [[place] 5-325] 1 - 2 tab PO Q4-6H PRN #84 tab 02/02/18 [ Rx] Sennosides [Senokot] 1 tab PO BID #60 tablet 02/02/18 [Rx] Follow up Appointment(s)/Referral(s): Keshawn Burdick DO [Doctor of Osteopathic Medicine] - 02/15/18 10:00 am Activity/Diet/Wound Care/Special Instructions: Weightbearing as tolerated with walker Leave dressing intact. Dressing may be removed by home care nurse in 10 days. May shower with dressing on. Follow-up with [facility] in 2 weeks, please call with any questions or concerns [phone] Discharge Disposition: HOME WITH HOME HEALTH SERVICES
[2018-02-02 09:02] VITALS: BP 135/87; PULSE 82; RESP 12
[2018-02-02] MEDS: INSULIN ASPART 100 UNIT/ML 1 ML 10 ML VIAL SQ SCH ×2 (09:49→11:49)
[2018-02-02] MEDS: ASPIRIN 325 MG TAB PO SCH (10:02)
[2018-02-02] MEDS: metFORMIN 500 MG TAB PO SCH (10:02)
[2018-02-02] MEDS: MELOXICAM 7.5 MG TAB PO SCH (10:02)
[2018-02-02] MEDS: MULTIVITAMINS, THERA 1 EACH TAB PO SCH (10:03)
[2018-02-02] MEDS: HYDROcodone/APAP 5-325MG 1 EACH TAB PO PRN (10:05)
[2018-02-02 11:24] LABS: Glucose,Whole Blood 108 mg/dL (75-99)
--- NOTE | 2018-02-02 20:46 | PN ---
PROGRESS NOTE DATE OF SERVICE: 02/02/2018 PRESENTING COMPLAINT: Right hip pain. INTERVAL HISTORY: Patient is status post right hip surgery. Patient is doing much better, walking better in the hallway. No new issues. Tolerating a diet. REVIEW OF SYSTEMS: Done for constitutional, cardiovascular, GI, pulmonary, musculoskeletal; relevant findings as above. CURRENT MEDICATIONS: Reviewed. PHYSICAL EXAMINATION: Temperature 98.5, pulse 82, respiration 12, blood pressure 135/87, pulse ox 97% on room air. GENERAL APPEARANCE: Sitting up on a chair, comfortable. EYES: Pupils equal. Conjunctivae normal. HEENT: External appearance of nose and ears normal. Oral cavity normal. NECK: JVD not raised. Mass not palpable. RESPIRATORY: Effort normal. Lungs are clear. CARDIOVASCULAR: First and second sounds normal. No edema. ABDOMEN: Soft, non-tender. Liver and spleen not palpable. PSYCHIATRY: Alert and oriented x3. Mood and affect normal. INVESTIGATIONS: White count 6.1, hemoglobin 11.1. ASSESSMENT: 1. Right total hip arthroplasty. 2. Primary osteoarthritis. 3. Obstructive sleep apnea. Does not use CPAP machine. 4. Hyperlipidemia. 5. Essential hypertension. 6. Diabetes mellitus, type 2, on oral hypoglycemic. 7. Morbid obesity with body mass index of 51.5. PLAN: Care was discussed with the patient bedside. Questions were answered. MMODL / IJN: [id number] /
== END 2018-02-02 14:30 | disposition home health service (06) | DRG 470 ==
LOC: 2ORMAIN 10:44 → 3SUR 14:41
PROVIDERS: ADMIT Orthopaedic Surgery; ATTEND Orthopaedic Surgery
PROC: 30233N0 Transfusion of Autologous Red Blood Cells into Peripheral Vein, Percutaneous Approach (ICD-10-PCS; 2018-01-30)
PROC: 0SR906A Replacement of Right Hip Joint with Oxidized Zirconium on Polyethylene Synthetic Substitute, Uncemented, Open Approach (ICD-10-PCS; principal; 2018-01-30 12:30)
DX: M16.11 Unilateral primary osteoarthritis, right hip (principal); Z68.43 Body mass index [BMI] 50.0-59.9, adult; E66.01 Morbid (severe) obesity due to excess calories; E11.9 Type 2 diabetes mellitus without complications; J45.909 Unspecified asthma, uncomplicated; E78.5 Hyperlipidemia, unspecified; G47.00 Insomnia, unspecified; G47.33 Obstructive sleep apnea (adult) (pediatric); K21.9 Gastro-esophageal reflux disease without esophagitis; I10 Essential (primary) hypertension; L98.9 Disorder of the skin and subcutaneous tissue, unspecified; R39.15 Urgency of urination; Z79.84 Long term (current) use of oral hypoglycemic drugs; Z79.1 Long term (current) use of non-steroidal anti-inflammatories (NSAID); Z79.51 Long term (current) use of inhaled steroids; Z79.899 Other long term (current) drug therapy; Z96.651 Presence of right artificial knee joint; Z88.1 Allergy status to other antibiotic agents; Z91.048 Other nonmedicinal substance allergy status; Z83.3 Family history of diabetes mellitus; Z80.49 Family history of malignant neoplasm of other genital organs; Z82.5 Family history of asthma and other chronic lower respiratory diseases; Z80.7 Family history of other malignant neoplasms of lymphoid, hematopoietic and related tissues; Z80.8 Family history of malignant neoplasm of other organs or systems
CPT/HCPCS: 73501; 83036; 84132; 85025; 86850; 86891; 86900; 86901; 88300

== ENCOUNTER → 2018-06-09 | Outpatient (CLI) | payer BC ==
--- NOTE | 2018-06-13 07:39 | MM ---
Reason for exam: screening (asymptomatic). Last mammogram was performed 2 years and 2 months ago. History: Patient is nulliparous. Benign excisional biopsy of the right breast, March 18, 1998. Physical Findings: A clinical breast exam by your physician is recommended on an annual basis and results should be correlated with mammographic findings. MG Screening Mammo w CAD Bilateral CC and MLO view(s) were taken. Prior study comparison: April 03, 2016, bilateral MG screening mammo w CAD. November 11, 2014, bilateral MG screening mammo w CAD. No significant changes when compared with prior studies. ASSESSMENT: Benign, BI-RAD 2 RECOMMENDATION: Routine screening mammogram of both breasts in 1 year.
== END ==
LOC: RADMAMWWP 12:28
PROVIDERS: ATTEND Family Medicine
DX: Z12.31 Encounter for screening mammogram for malignant neoplasm of breast (principal)
CPT/HCPCS: 77067

== ENCOUNTER → 2022-03-02 | Outpatient (CLI) | payer BC ==
--- NOTE | 2022-03-03 09:21 | MM ---
Reason for Exam: Screening (asymptomatic). Last mammogram was performed 3 year(s) and 8 month(s) ago. Patient History: Menarche at age 13. Patient has no children. Postmenopausal. 03/18/1998, Benign Excisional Biopsy on the right side. Risk Values: Anastacia 5 year model risk: 1.9%. NCI Lifetime model risk: 9.3%. Prior Study Comparison: 11/11/2014 Bilateral Screening Mammogram, [facility]. 04/03/2016 Bilateral Screening Mammogram, [facility]. 06/09/2018 Bilateral Screening Mammogram, [facility]. Tissue Density: There are scattered fibroglandular densities. Findings: Analyzed By CAD. Scattered benign-appearing round calcifications are present. No suspicious groups of microcalcifications, spiculated or lobular masses, architectural distortion or other secondary signs of malignancy are mammographically apparent. Overall Assessment: Benign, BI-RAD 2 Management: Screening Mammogram of both breasts in 1 year. A negative mammogram report should not preclude additional follow up of suspicious palpable abnormalities. Patient should continue monthly self breast exam. A clinical breast exam by your physician is recommended on an annual basis and results should be correlated with mammographic findings. Electronically signed and approved by: Galindo Hernández D.O. Radiologis
== END | disposition home or self-care (01) ==
LOC: RADMAMWWP 13:53
PROVIDERS: ATTEND Family Medicine
DX: Z12.31 Encounter for screening mammogram for malignant neoplasm of breast (principal); Z78.0 Asymptomatic menopausal state
CPT/HCPCS: 77067

== ENCOUNTER → 2023-02-15 | Outpatient (CLI) | payer BC ==
--- NOTE | 2023-02-15 17:42 | CA ---
Transthoracic Echo Report Name: Brenna Sommers Age: 62 Gender: F : 1960 Exam Date: 02/15/2023 15:57 Exam Location: [facility] Ht (in): 63 Wt (lb): 315 Ordering Physician: Darnell Torrez DO Attending/Referring Phys: Caridad Dominguez [facility] Shift Superintendent Kenisha Velazquez RDCS Procedure CPT: Indications: R01.1 Murmur Cardiac Hx: Technical Quality: Fair Contrast 1: Total Dose (mL): Contrast 2: Total Dose (mL): MEASUREMENTS (Male / Female) Normal Values 2D ECHO LV Diastolic Diameter PLAX 4.9 cm 4.2 - 5.9 / 3.9 - 5.3 cm LV Systolic Diameter PLAX 3.4 cm IVS Diastolic Thickness 1.1 cm 0.6 - 1.0 / 0.6 - 0.9 cm LVPW Diastolic Thickness 1.2 cm 0.6 - 1.0 / 0.6 - 0.9 cm LV Relative Wall Thickness 0.5 RV Internal Dim ED PLAX 3.4 cm LA Systolic Diameter LX 4.1 cm 3.0 - 4.0 / 2.7 - 3.8 cm LV Diastolic Volume MOD 4C 144.8 cm??? LV Systolic Volume MOD 4C 64.0 cm??? LV Ejection Fraction MOD 4C 55.8 % LV Cardiac Index MOD 4C 2223.5 cm???/min???m??? LV Diastolic Length 4C 8.9 cm LV Systolic Length 4C 7.5 cm LV Diastolic Volume MOD 2C 132.9 cm??? LV Systolic Volume MOD 2C 69.3 cm??? LV Ejection Fraction MOD 2C 47.8 % LV Cardiac Index MOD 2C 1748.8 cm???/min???m??? LV Diastolic Length 2C 8.9 cm LV Systolic Length 2C 6.9 cm LA Volume 63.6 cm??? 18 - 58 / 22 - 52 cm??? M-MODE Aortic Root Diameter MM 3.0 cm MV E Point Septal Separation 0.1 cm AV Cusp Separation MM 2.4 cm DOPPLER AV Peak Velocity 171.6 cm/s AV Peak Gradient 11.8 mmHg MV Area PHT 4.1 cm??? Mitral E Point Velocity 87.4 cm/s Mitral A Point Velocity 96.0 cm/s Mitral E to A Ratio 0.9 MV Deceleration Time 185.9 ms MV E' Velocity 6.7 cm/s Mitral E to MV E' Ratio 13.0 TR Peak Velocity 261.5 cm/s TR Peak Gradient 27.3 mmHg Right Ventricular Systolic Press 32.3 mmHg FINDINGS Left Ventricle Left ventricular ejection fraction is estimated at 50-55 %. Left ventricular cavity size normal. Mildly increased septal wall thickness. Mildly increased posterior wall thickness. Right Ventricle Mild right ventricular dilatation. Right ventricular systolic pressure within normal limits. Right Atrium Normal right atrial size. Left Atrium Mildly increased left atrial diameter. Moderately increased left atrial volume. Mitral Valve Structurally normal mitral valve. Trace mitral regurgitation. Aortic Valve Trileaflet aortic valve. No aortic valve stenosis or regurgitation. Tricuspid Valve Structurally normal tricuspid valve. Trace to mild tricuspid regurgitation. Pulmonic Valve Pulmonic valve not well visualized. Pericardium No pericardial effusion. Aorta Normal size aortic root and proximal ascending aorta. CONCLUSIONS Normal LV systolic function Previewed by: Dr. Kendall Acuña MD (Electronically Signed) Final Date: 15 February 2023 17:41
== END | disposition home or self-care (01) ==
LOC: RADECHMAIN 15:46
PROVIDERS: ATTEND Family Medicine
DX: I08.1 Rheumatic disorders of both mitral and tricuspid valves (principal); R01.1 Cardiac murmur, unspecified
CPT/HCPCS: 93306